=== PATIENT | male | born 1975 | race Caucasian/White ===

== ENCOUNTER 2016-12-28 16:06 | Emergency (ER) | payer OTHER ==
[~2016-12-28] VITALS: Ht 185.4 cm; Wt 96.3 kg
[2016-12-28 16:10] VITALS: TEMP 36.8; Ht 185.4 cm; Wt 96.3 kg
[2016-12-28] MEDS ORDERED: IBUP-1050 PO (16:20)
[2016-12-28] MEDS ORDERED: XYLOCAINE 1%/SOD BICARB 20 ML VIAL INFIL ONE (16:30)
[2016-12-28] MEDS ORDERED: BUPIVACAINE 0.5 % 5 MG/1 ML MPF 30ML VIAL INFIL ONE (16:30)
--- NOTE | 2016-12-28 17:00 | DIAGNOSTIC IMAGING REPORT ---
LEFT HAND MIN 3 VIEWS ROUTINE CLINICAL HISTORY: LEFT 4th/5th DIP crush injuries] COMPARISON: Left third digit radiographs May 23, 2010. FINDINGS: A well-corticated ossicle along the ulnar styloid is indicative of an old injury. There is a comminuted, mildly displaced fracture of the distal tuft of the distal phalanx of the left fourth finger. There is an associated small bone fragment. No acute fracture of the left fifth finger is identified. IMPRESSION: Comminuted, mildly displaced fracture of the distal tuft of the distal phalanx of the left fourth finger with tiny adjacent fracture fragment. Electronically signed by: Mir Jacobson M.D. 12/28/2016 4:59 PM Dictated Date/Time: 12/28/2016 4:55 PM
--- NOTE | 2016-12-28 17:58 | EMERGENCY ROOM VISIT NOTE ---
ED Visit Note First contact with patient: 16:14 Chief Complaint: LEFT 4th/5th Finger Lacerations History of Present Illness: This patient is a 41-year-old male who presents to the emergency department today for lacerations to the LEFT fourth and fifth digits after crush injury. He reports that while working out at the gym, he accidentally put down a dumbbell and crushed his fingers. He reports immediate pain and bleeding. He denies any numbness or tingling into the distal extremities. He reports a history of fracture or injury to the affected digit otherwise. He rates his current discomfort as a 7/10. He is tried nothing for his pain at this point. The patient denies any associated hand pain, wrist pain , or forearm pain. He reports that his tetanus status is up-to-date. Medications: No current medications. Allergies: No known allergies. PMH: No pertinent past medical history. SHx: Patient is a 41-year-old male who lives locally. ROS: All pertinent positive and negative review of systems are appropriately documented in the History of Present Illness. Physical Exam: VITAL SIGNS - Vital signs and nursing notes were reviewed. GENERAL - 41-year-old male appearing his stated age who is in no acute distress. Communicates well with provider and answers questions appropriately. SKIN - There is a 1.5 cm long laceration noted to the tip of the LEFT fourth digit on the palmar surface. The edges demonstrate multilayer laceration with full-thickness more proximally. No deep structures appreciated. No active bleeding noted. In addition, there is a subungual hematoma noted with blood seeping under the nail of the LEFT fourth digit. No obvious laceration injury appreciated. MUSCULOSKELETAL - Laceration as described above. +5/5 strength appreciated of the affected digits. Full range of motion of the affected digits. NEUROLOGIC - Spinothalamic tract was found to be intact with ability to discriminate sharp versus dull sensation. No sensory defects of the dorsal column were appreciated utilizing light touch for evaluation. VASCULAR - Capillary refill was brisk. IMAGING: LEFT HAND MIN 3 VIEWS ROUTINE CLINICAL HISTORY: LEFT 4th/5th DIP crush injuries] COMPARISON: Left third digit radiographs May 23, 2010. FINDINGS: A well-corticated ossicle along the ulnar styloid is indicative of an old injury. There is a comminuted, mildly displaced fracture of the distal tuft of the distal phalanx of the left fourth finger. There is an associated small bone fragment. No acute fracture of the left fifth finger is identified. IMPRESSION: Comminuted, mildly displaced fracture of the distal tuft of the distal phalanx of the left fourth finger with tiny adjacent fracture fragment. ED Course: Patient was seen and evaluated by myself. X-ray of the affected digits were obtained. Imaging results as above. Imaging results were discussed with the patient who acknowledges understanding. Costs and benefits of performing primary wound closure versus no repair were discussed with the patient who verbalizes understanding. Verbal consent was obtained prior to performing the procedure. 7.0 cc of a 1. solution of 1% buffered lidocaine and 0.5% Marcaine was used to perform a digital block of the LEFT fourth and fifth digits. The wound on the fifth digit was cleansed and prepped in the typical sterile fashion utilizing normal saline and Betadine. The wound was sterilely draped. Once proper anesthetization was established, the wound was further examined and demonstrated a laceration as described above. No deep structures appreciated. The wound was copiously irrigated with normal saline and Betadine. The wound was closed using 7 simple, 5-0 nylon sutures with the wound edges being well approximated. The nail of the LEFT fourth digit had from the nailbed with mild seeping under the nailbed. The nail was removed. There is no laceration appreciated to the nailbed. The nail was replaced and tacked into place in the 4 corners using 4 simple interrupted 5-0 nylon sutures. Patient tolerated the procedure well. No complications were met. The wound was cleansed and dressed with a Bacitracin dressing. A metal splint was applied to the finger for comfort. Patient educated on worrisome symptoms for return visit to the Emergency Department. Patient discharged to home in good condition. Impression: Crush Injury of Fingers, LEFT 5th Digit Laceration Discharge Instructions: You have received 7 sutures on your LEFT 5th Digit. These sutures are NOT dissolvable and WILL need to be removed by a health care provider in 12-14 days. You can return to the Emergency Department or contact your Primary Care Provider to have the sutures removed. You have also sustained a fracture to the LEFT fourth digit. Please wear the splint for comfort until the sutures are removed. Proper wound care is essential for adequate wound healing and infection prevention. You can shower and clean the wound with soap and water. Do not scour over the wound, pat dry with a towel. Do not submerse the wound (i.e. bathe or dish wash) until the sutures have been removed. You can use an antibiotic ointment with a dressing over the wound for the next 3-4 days. After this time you may leave the wound dry and open to the air. If crust develops over the wound you can use a Q-tip to apply a 1:1 peroxide:water solution to clean the wound. Look for signs of infection of the wound including: increased pain, swelling, foul discharge, streaking, or increased temperature. If any of these are noticed you should return to the Emergency Department for further assessment and treatment. As with any laceration you may have received nerve damage to the surrounding tissues. This damage may or may not be permanent. You should keep the area covered with sunscreen for the first 6 months to 1 year when at risk for exposure to help minimize scarring. You can also use scar reducing creams or Vitamin E oil to help minimize scarring. For pain control, you can use the following skgb-vio-tptqjup medicines (if >12 yo): - Regular strength (325mg/tab) Tylenol (acetaminophen) 2 tabs every 4-6 hours as needed. Do not exceed 12 tablets in a 24 hour period. Avoid taking more than 4 grams (4000 mg) of Tylenol per day. This includes any other sources of acetaminophen you may take on a regular basis. - Regular strength (200 mg/tab) Advil (ibuprofen) 1-2 tabs every 4-6 hours as needed. Do not exceed a dose of 3200 mg per day. Return to the emergency department if your symptoms worsen despite treatment course outlined above. Current/Historical Medications Scheduled Ibuprofen (Advil), 400-600 MG PO Q6H Scheduled PRN Hydrocodone/Acetaminophen 5MG/325MG ([place] 5MG/325MG), 1-2 TABLET PO Q4H PRN for Pain Ondasetron Odt (Zofran Odt), 1 TAB SL Q6 PRN for Nausea or Vomiting Allergies Coded Allergies: No Known Allergies (Unverified , 12/28/16) Vital Signs Date Time Temp Pulse Resp B/P Pulse Ox O2 Delivery O2 Flow Rate FiO2 12/28/16 18:23 63 18 124/83 97 Room Air 2/14/17 16:10 36.8 93 17 135/87 97 Room Air Departure Information Impression Primary Impression: Injury, crush, finger Additional Impression: Finger laceration Dispostion Home / Self-Care Condition GOOD Prescriptions Ondasetron Odt (ZOFRAN ODT) 4 Mg Tab 1 TAB SL Q6 Y for Nausea or Vomiting for 2 Days, #8 TAB Prov: Mateo Dozier PA-C 12/28/16 Hydrocodone/Acetaminophen 5MG/325MG ([place] 5MG/325MG) Tab 1-2 TABLET PO Q4H Y for Pain, #8 TAB For Initial Treatment Prov: Mateo Dozier PA-C 12/28/16 Referrals No Doctor, Assigned (PCP) Patient Instructions [facility] Additional Instructions You have received 7 sutures on your LEFT 5th Digit. These sutures are NOT dissolvable and WILL need to be removed by a health care provider in 12-14 days. You can return to the Emergency Department or contact your Primary Care Provider to have the sutures removed. You have also sustained a fracture to the LEFT fourth digit. Please wear the splint for comfort until the sutures are removed. Proper wound care is essential for adequate wound healing and infection prevention. You can shower and clean the wound with soap and water. Do not scour over the wound, pat dry with a towel. Do not submerse the wound (i.e. bathe or dish wash) until the sutures have been removed. You can use an antibiotic ointment with a dressing over the wound for the next 3-4 days. After this time you may leave the wound dry and open to the air. If crust develops over the wound you can use a Q-tip to apply a 1:1 peroxide:water solution to clean the wound. Look for signs of infection of the wound including: increased pain, swelling, foul discharge, streaking, or increased temperature. If any of these are noticed you should return to the Emergency Department for further assessment and treatment. As with any laceration you may have received nerve damage to the surrounding tissues. This damage may or may not be permanent. You should keep the area covered with sunscreen for the first 6 months to 1 year when at risk for exposure to help minimize scarring. You can also use scar reducing creams or Vitamin E oil to help minimize scarring. For pain control, you can use the following ldvy-jti-jilnvqs medicines (if >12 yo): - Regular strength (325mg/tab) Tylenol (acetaminophen) 2 tabs every 4-6 hours as needed. Do not exceed 12 tablets in a 24 hour period. Avoid taking more than 4 grams (4000 mg) of Tylenol per day. This includes any other sources of acetaminophen you may take on a regular basis. - Regular strength (200 mg/tab) Advil (ibuprofen) 1-2 tabs every 4-6 hours as needed. Do not exceed a dose of 3200 mg per day. Return to the emergency department if your symptoms worsen despite treatment course outlined above. Problem Qualifiers Primary Impression: Injury, crush, finger Encounter type: initial encounter Qualified Codes: S67.10XA - Crushing injury of unspecified finger(s), initial encounter Additional Impression: Finger laceration Encounter type: initial encounter Qualified Codes: S61.219A - Laceration without foreign body of unspecified finger without damage to nail, initial encounter
[2016-12-28] MEDS ORDERED: HYDR-5688 PO (18:09)
[2016-12-28] MEDS ORDERED: ONDA4TAB10 SL (18:09)
[2016-12-28 18:23] VITALS: BP 124/83; PULSE 63; O2SAT 97
== END 2016-12-28 18:23 | disposition home or self-care (01) ==
LOC: C.EDB 16:08 → C.EDD 18:23
DX: S61.215A Laceration without foreign body of left ring finger without damage to nail, initial encounter (principal); S61.217A Laceration without foreign body of left little finger without damage to nail, initial encounter; S62.635A Displaced fracture of distal phalanx of left ring finger, initial encounter for closed fracture; S67.195A Crushing injury of left ring finger, initial encounter; S67.197A Crushing injury of left little finger, initial encounter; W23.0XXA Caught, crushed, jammed, or pinched between moving objects, initial encounter; Y93.B1 Activity, exercise machines primarily for muscle strengthening